=== PATIENT | male | born 1960 | race Native Hawaiian/Other Pacific Islander ===

== ENCOUNTER 2021-10-25 09:44 | Outpatient (CLI) | payer BC | END 2021-10-25 18:49 | disposition home or self-care (01) | LOC: RESP 09:44 | PROVIDERS: ATTEND Internal Medicine Cardiovascular Disease | DX: E11.9 Type 2 diabetes mellitus without complications (principal); R06.00 Dyspnea, unspecified; I10 Essential (primary) hypertension; R60.0 Localized edema | CPT/HCPCS: 36600; 82805 ==